=== PATIENT | female | born 1940 | race Caucasian/White ===

== ENCOUNTER 2022-05-31 17:11 | Emergency (ER) | payer MEDICARE, SELFPAY ==
[2022-05-31 17:20] VITALS: BP 153/83; PULSE 62; RESP 20; TEMP 36; BMI 21.1
--- NOTE | 2022-05-31 17:35 | CRLHL7_ITS ---
For Patients: As a result of the Century Cures Act, medical imaging exams and procedure reports are released immediately into your electronic medical record. You may view this report before your referring provider. If you have questions, please contact your health care provider. Indication: Fall on outstretched hand, right wrist pain Comparison: None available. Technique: AP, lateral, and oblique views right wrist were obtained. Findings: There is an impacted fracture of the distal radius with minimal apex dorsal angulation. There is an additional ulnar styloid avulsion injury. Degenerative change of the 1st carpometacarpal joint is appreciated. Moderate carpal soft tissue swelling. Impression: Impacted fracture of the distal radius with minimal apex dorsal angulation. Dictated by Ruben Wright MD @ 05/31/2022 6:00:28 PM (Electronically Signed)
--- NOTE | 2022-05-31 17:36 | ED.UPPEXIN ---
HPI - Extremity Injury (Upper) General Chief Complaint: Extremity Pain/Injury, Upper Stated Complaint: R wrist injury Time Seen by Provider: 05/31/22 17:32 History of Present Illness HPI narrative: This 81-year-old female comes in with an injury to her right wrist. Prior to arrival she fell onto her outstretched right hand. She has swelling and deformity at the right wrist. She did not have any other injury and did not lose consciousness. Related Data Previous Rx's Medication Instructions Recorded tramadol 50 mg tablet 50 mg PO Q6H PRN pain #20 tabs 05/31/22 Allergies Allergy/AdvReac Type Severity Reaction Status Date / Time No Known Drug Allergies Allergy Verified 05/31/22 17:20 Review of Systems Status of ROS: Reports: 10 or more systems reviewed and unremarkable except as noted in History and below Narrative: Constitutional: No fevers, no weight gain or loss. Eyes: No discharge. No vision changes. HENT: No congestion, no sore throat, no ear pain. Cardiovascular: No chest pain, no palpitations. Respiratory: No shortness of breath, no wheezes, no cough. Gastrointestinal: No abdominal pain, no vomiting, no diarrhea. Genitourinary: No dysuria, no hematuria. Musculoskeletal: Right wrist injury as described above. Skin: No rashes, no pruritis. Neurological: No dizziness, weakness, sensory change, speech change. Endo/Heme/Allergies: No bruising or bleeding. No polydipsia. Pysch: no suicidality, no anxiety, no insomnia. All other systems reviewed and are negative. Exam Narrative: Exam Narrative: Constitutional: Well-developed, well-nourished, no acute distress. HEENT: Normocephalic, atraumatic. Neck: Normal range of motion. Nontender. Supple. Heart: Regular. No murmurs. Normal rate. Intact distal pulses. Lungs: Clear to auscultation. No chest discomfort. No wheezes, rhonchi, or rales. Abdomen: Normal bowel sounds. Nontender. No rebound tenderness. Genitalia: Deferred. Back: No midline tenderness. Normal range of motion. Extremities: Pain and swelling at the right wrist typical of a fracture. There is no skin injury. Skin: Intact. No rash. Warm. No erythema or pallor. Neurologic: No altered sensation. No weakness. Alert and oriented. Psychiatric: No suicidality. No anxiety or depression. No insomnia. Nursing notes and vitals signs are reviewed. Const: Vital Signs, click to edit/add: Vital Signs - 24 hr 05/31/22 17:20 Temperature 96.8 F L Pulse Rate [Pulse Oximeter] 62 Respiratory Rate 20 Blood Pressure [Le ft Upper Arm] 153/83 H Oxygen Delivery Me thod Room Air Course Vital Signs Vital signs: Initial Vital Signs Temperature 96.8 F L 05/31/22 17:20 Temperature Source Temporal Artery Scan 05/31/22 17:20 Pulse Rate 62 05/31/22 17:20 Pulse Rhythm 05/31/22 17:20 Respiratory Rate 20 05/31/22 17:20 Blood Pressure 153/83 H 05/31/22 17:20 Blood Pressure Mean 106 05/31/22 17:20 Blood Pressure Position Sitting 05/31/22 17:20 Oxygen Delivery Method 05/31/22 17:20 Vital Signs Temperature 96.8 F L 05/31/22 17:20 Pulse Rate 62 05/31/22 17:20 Respiratory Rate 20 05/31/22 17:20 Blood Pressure 153/83 H 05/31/22 17:20 Oxygen Delivery Method 05/31/22 17:20 Temperature 96.8 F L 05/31/22 17:20 Pulse Rate 62 05/31/22 17:20 Respiratory Rate 20 05/31/22 17:20 Blood Pressure 153/83 H 05/31/22 17:20 Oxygen Delivery Method 05/31/22 17:20 MDM - Extremity Injury (Upper) MDM Narrative Medical decision making narrative: This patient comes in with an injury to her right wrist. X-ray images show evidence of a impacted fracture of the distal radius with minimal angulation. The patient was placed in a volar splint using Ortho Glass material. A follow-up appointment with orthopedic clinic is arranged. She did receive a prescription for some tablets of tramadol. Imaging Data XR R Wrist: Radiologist's impression: Impacted fracture of the distal radius with minimal apex dorsal angulation. Discharge Plan Discharge Clinical Impression: Fracture of wrist Patient Disposition: Home, Self-Care Condition: Stable Additional Instructions: Take medication as needed and indicated. Wear splint. Follow-up with orthopedic clinic as scheduled. Prescriptions: New tramadol 50 mg tablet 50 mg PO Q6H PRN (Reason: pain) Qty: 20 0RF Follow Up/Referrals: Madelyn Cruz MD [Primary Care Provider] - Stand Alone Forms: [employer] Info Instructions
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
== END 2022-05-31 19:16 | disposition home or self-care (01) ==
PROVIDERS: Emergency Provider Emergency Medicine Emergency Medical Services; PCP Family Medicine
DX: S52.591A Other fractures of lower end of right radius, initial encounter for closed fracture (principal); W18.30XA Fall on same level, unspecified, initial encounter; Y93.9 Activity, unspecified; Y92.9 Unspecified place or not applicable; Y99.9 Unspecified external cause status
CPT/HCPCS: 29125; 73110; 99283; 99284

== ENCOUNTER 2022-06-10 06:36 | Day surgery (SDC) | payer MEDICARE, SELFPAY ==
[2022-06-10] VITALS (8 sets, daily range): BP systolic 118–132; BP diastolic 61–88; PULSE 59–72; RESP 16–18; TEMP 36.6–36.9; O2SAT 95–100; BMI 20.4
[2022-06-10] MEDS: fentaNYL 100 MCG/2 ML inj IVP (07:01)
[2022-06-10] MEDS: MIDAZOLAM HCL 1 MG/ML inj IVP (07:01)
[2022-06-10] MEDS: LACTATED RINGERS 1000 ML 1,000 ML 100 ML IV (07:30)
[2022-06-10] MEDS: SODIUM CHLORIDE 0.9 % (FLUSH) 10 ML SYRINGE IVF (07:42)
--- NOTE | 2022-06-10 07:56 | SUR.PREOP ---
TIME?OUT:?0758 PT/RN/MDA?VERIFICATION?OF?SURGICAL?SITE,?PROCEDURE,?AND?CONSENT OBTAINED?PRIOR?TO?INVASIVE?PROCEDURE.
--- NOTE | 2022-06-10 08:00 | CRLHL7_ITS ---
For Patients: As a result of the Cures Act, medical imaging exams and procedure reports are released immediately into your electronic medical record. You may view this report before your referring provider. If you have questions, please contact your health care provider. Indication: Right Distal Radius ORIF Technique: Three fluoroscopic images of the right wrist. Fluoroscopic time 17.2 seconds. IMPRESSION: Fluoroscopic guidance for open reduction internal fixation of distal radial metaphyseal fracture. Dictated by Daniele Leonardo MD @ 06/10/2022 11:00:36 AM (Electronically Signed)
--- NOTE | 2022-06-10 09:08 | P.ORPRC_ITS ---
Procedure Note Date of procedure: 06/10/22 Procedure: PREOPERATIVE DIAGNOSES: 1. Right distal radius fracture intra-articular (ulnar facet), 3 part distal radius fracture with dorsal angulation and displacement POSTOPERATIVE DIAGNOSES: 1. Right distal radius fracture intra-articular (ulnar facet), 3 part distal radius fracture with dorsal angulation and displacement NAME OF OPERATION: 1. Right distal radius open reduction with internal fixation of intraarticular fracture (3+ parts) 2. 36496 - intraoperative fluoroscopy up to 1 hour. SURGEON: Javid David MD SALES ORDER COORDINATOR: Jonathan Quezada PA-C - Of note, an technical assistant was critical for this case to aide in patient positioning, limb manipulation, tissue retraction, closure, and splinting. ANESTHESIA: Supraclavicular block plus MAC IMPLANTS: Synthes dual column volar locking distal radius plate with 1.8 mm distal locking pegs and 2.4 mm proximal locking screws. TOURNIQUET: 42 minutes at 250 torr. INDICATIONS: The patient is a pleasant, 81-year-old female who sustained a right wrist injury after a fall. They had difficulty with use of the extremity and deformity. Workup included xrays which revealed an unstable fracture. Given these findings, surgery was recommended to stablize the fracture. FINDINGS: Closed, mildly comminuted intra-articular distal radius fracture with dorsal angulation and displacement and shortening. PROCEDURE: Following a thorough discussion of risks, benefits, and alternatives, consent was obtained and the operative extremity was marked. The patient was brought to the operating room and placed supine on the operating table. Induction of anesthesia was achieved. Appropriate time out was performed identifying proper patient, site and procedure. 1 gram of iv Ancef was administered within 1 hour of incision preoperatively. The right upper extremity was prepped and draped in the appropriate sterile fashion using ChloraPrep prep. The limb was exsanguinated and the tourniquet inflated. A longitudinal incision was made overlying the FCR tendon. Sharp incision through skin and subcutaneous tissue allowed identification of the FCR tendon. The superficial sheath was sharply divided, the tendon retracted ulnarly, and the deep fascial sheath also released. The FPL was retracted ulnarly and the pronator quadratus was sharply released from the radial border of the radius and subperiosteally elevated. The fracture was encountered and cleared of interposed periosteum / fracture hematoma. A reduction was performed and the appropriate plate selected. Temporary stabilization allowed C-arm fluoroscopy to confirm proper fracture reduction and plate positioning. The oblong hole was filled with a nonlocking screw followed by multiple distal locking pegs being careful to keep these in subchondral bone and extraarticular. Finally, the remaining proximal shaft screws were drilled and placed. Fluoroscopic imaging confirmed the improved position and showed the fracture to be stable. At this stage, the wound was thoroughly irrigated with normal saline. Closure performed with 0 Vicryl for the pronator quadratus, followed by deflation of the tourniquet. All major bleeding points were cauterized. Closure was then completed with 3-0 Vicryl for the subcutaneous, and 4-0 statafix for subcuticular closure. Dressings were applied along with a volar/dorsal splint. The patient was awoken from anesthesia and transferred to PACU in stable condition. PLAN: 1. Elevate operative extremity. 2. Ice, acetominphen or ibuprofen PRN. 3. Percocet for pain as needed. 4. Follow up with me in 10-16 days for wound check and splint removal.
--- NOTE | 2022-06-10 09:40 | P.NB_ITS ---
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 Images saved: Yes Medications given in 5ml increments after negative aspiration: Ropivicaine %: 0.5 mL: 30 Needle gauge: 22 Patient tolerated procedure well: Yes Additional comments: Needle noted adjacent to nerve Block Charges Block Charge (with Pro Fee): Brachial Plexus Use of Ultrasound Machine for Block: Yes- US Guidance/pain block
--- NOTE | 2022-06-10 09:44 | W.ANESCHARGE ---
Anesthesia Charges Start Date/Time Anesthesia Start Date: 06/10/22 Anesthesia Start Time: 08:08 Stop Date/Time Anesthesia Stop Date: 06/10/22 Anesthesia Stop Time: 09:43 Summary Emergency: No Extremes of Age: Over 72-CPT [id number]
--- NOTE | 2022-06-12 11:11 | SUR.PHASEII ---
Verified pt d/c time and charting per MPint. Entered d/c time and chart verification documentation.
== END 2022-06-10 11:03 | disposition home or self-care (01) ==
PROVIDERS: PCP Family Medicine; Visit Provider Orthopaedic Surgery Sports Medicine
PROC: (CPT 25575; principal; 2022-06-10 08:00)
DX: S52.571A Other intraarticular fracture of lower end of right radius, initial encounter for closed fracture (principal)
CPT/HCPCS: 25609; 01830; 64415; 73110; 76000; 76942; 99100; A4580; C1713; J2250; J2405; J2704; J3010; J7120

== ENCOUNTER 2022-08-29 16:00 | Outpatient (RCR) | payer MEDICARE, SELFPAY ==
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
== END 2022-08-30 08:17 | disposition home or self-care (01) ==
PROVIDERS: PCP Family Medicine; Visit Provider Orthopaedic Surgery Sports Medicine
DX: Z98.890 Other specified postprocedural states (principal); Z51.89 Encounter for other specified aftercare
CPT/HCPCS: 97110; 97140; 97165; X5282

== ENCOUNTER 2023-10-02 14:30 | Outpatient (RCR) | payer MEDICARE, SELFPAY | END 2024-01-30 23:59 | disposition home or self-care (01) | PROVIDERS: PCP Family Medicine; Visit Provider Family Medicine | DX: R41.3 Other amnesia (principal); Z51.89 Encounter for other specified aftercare | CPT/HCPCS: 97165; 97535 ==

== ENCOUNTER 2024-12-18 11:42 | Emergency (ER) | payer MEDICARE, SELFPAY ==
--- OUTSIDE RECORDS SUMMARY | 2024-12-18 11:44 | XMS_ITS | Clinical Summary ---
Author Organization [facility] Address [address] [place] [id number] Care Team Providers Care Tuber Operator Name Role Phone Madelyn Cruz MD Primary Care Provide r Dilip Francois MD Unavailable Jakob Rojas MD Unavailable [phone] Guillermina Hitchcock DC Unavailable [phone] Allergies No known active allergies Medications MULTIVITAMIN TAB take one daily 0 9 Active cholecalciferol (VITAMIN D-3) 2,000 unit capsule Take 1 capsule by mouth once daily. 0 2 Active betamethasone dipropionate 0.05% (DIPROSONE 0.05% CREAM) 0.05 % creamIndications: Contact dermatitis and other eczema, due to unspecified cause Use twice daily prn hand dermatitis 1 Tube 1 3 Active Calcium Citrate 250 mg calcium tablet Take 1 tablet by mouth 2 times daily. 0 5 Active apixaban (Eliquis) 5 mg tabletIndications :Paroxysmal atrial fibrillation (HC) Take 1 Tablet (5 mg) by mouth two times daily. 180 Tablet 3 5 Active metoprolol tartrate (LOPRESSOR) 25 mg tabletIndications :Paroxysmal atrial fibrillation (HC) Take 1 Tablet (25 mg) by mouth two times daily. 180 Tablet 3 5 Active sertraline (ZOLOFT) 50 mg tabletIndications :Anxiety Take 1 Tablet (50 mg) by mouth once daily in the morning. 90 Tablet 3 5 Active donepeziL (ARICEPT) 10 mg tabletIndications :Mild cognitive impairment Take 1 Tablet (10 mg) by mouth at bedtime. 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 07/28/2014 Family history of colonic polyps 07/31/2011 Overview (09/20/2021): Colonoscopy 07/2011 normal repeat in 5 years Colonoscopy 10/2016 hyperplastic polyp repeat in 5 year. Colonoscopy 09/2021 normal, no follow up needed Lumbar facet arthropathy 05/09/2011 Synovial cyst of lumbar facet joint 03/21/2011 Degenerative arthritis of lumbar spine 9 Contact dermatitis and other eczema, due to unspecified cause 01/16/2007 Overview (01/16/2007): hands Osteoarthrosis, unspecified whether generalized or localized, unspecified site 01/16/2007 Malignant melanoma of skin of lower limb, includ ing hip 05/21/2006 Resolved Problems Problem Noted Date Diagnosed Date Resolved Date Osteopenia 05/18/2010 08/21/2018 Synovial cyst, unspecified 04/21/2009 0 03/21/2011 Overview (04/21/2009): Right-sided facet joint synovial cyst Disorder of bone and cartilage, unspecified 01/16/2007 05/18/2010 Overview (04/28/2009): Osteopenia DEXA 2006 - reordered 2008 Disorder of bone and cartilage, unspecified 01/16/2007 04/17/2010 Overview (01/16/2007): osteopenia Encounters Date Type Department Care Team Description 11/26/2024 Orders Only [facility] Scanner 1 scan: (1-Ord) [facility], NEVUS EXCISION RT INFERIOR LATERAL NECK, 11/26/2024 11/05/2024 Orders Only [facility] Scanner 1 scan: (1-Ord) [facility], [facility], 11/05/2024 from Last 3 Months Immunizations Immunization Administration Dates Next Due AMB Influenza, IIV3 (Age >=3 years)(Flu Clinic Only) 05/19/2013,05/26/2012 AMB Influenza, IIV4 PF (=>6 mos Flulaval,Fluzone Fluarix)(Flu Clinic Only) 04/20/2020 COVID-19 VACCINE SPIKEVAX (M ODERNA 50MCG/0.5ML) 12YO+ PFS 08/26/2024,08/21/2023 COVID-19 vaccine (Powerspan-Bio NTech 30mcg/0.3mL) PF, MDV 06/08/2021,08/29/2020,08/08/2020 INFLUENZA, IIV3 PF (AGE >= 6 MO) 04/13/2010 Influenza A (H1N1), Inactiva javi (Age 6-35 Mos) 06/05/2009 Influenza, High-dose Inactivated 04/20/2016,04/20 Influenza, High-dose Quadriv alent Inactivated 07/17/2023 Influenza, IIV3 (Age >=3 years) 04/25/2011,04/13,04/28/2009 Influenza, Inactivated AIIV4 (Age 65+ Years) Preserv Free 04/29/2022,07/18/2021 Influenza, Inactivated IIV3 (Age 65+ Years) Preserv Free 07/28/2024,07/24/2017 Pneumococcal Poly,23-Valent (Pneumovax) 04/28/20 09 Pneumococcal conj 13-Valent (Prevnar 13) 014 Tdap 10/29/2016,01/23/2007 Zoster (Shingrix-RZV, recombinant) 05/28/2019, Family History Medical History Relation Name Comments Dementia Brother Age 80 Cancer Daughter melanoma Heart Disease Father age 80 SD Cancer-breast Maternal Aunt Diabetes Maternal Grandfather Cancer-colon Maternal Grandmother Cancer-colon Maternal Uncle Hypertension Mother Diabetes Paternal Grandfather Cancer Son melanoma Relation Name Status Comments Brother Daughter Father Maternal Aunt Maternal Grandfather Maternal Grandmother Maternal Uncle Mother Paternal Grandfather Son Social History Tobacco Use Types Packs/Day Years Used Date Smoking Tobacco: Never Smokeless Tobacco: Never Tobacco Cessation:Counseling Given: Yes Alcohol Use Standard Drinks/Week Comments Not Currently 0 (1 standard drink = 0.6 oz pur e alcohol) very rare PHQ-2 Answer Date Recorded PHQ-2 TOTAL SCORE 0 08/26/2024 Social Connections Answer Date Recorded Do you often feel lonely or isolated from those around you? 0 08/26/2024 Financial Resource Strain Answer Date R ecorded Difficulty of Paying Living Expenses 3 08/26/2024 Difficulty of Paying Living Expenses Not on file 08/26/2024 Food Insecurity Answer Date Recorded Do you worry your food will run out before you are able to buy more? 1 08/26/2024 Transportation Needs Answer Date Record ed Does lack of transportation keep you from medica l appointments? 1 08/26/2024 Does lack of transportation keep you from work, meetings or getting things that you need? 1 08/26/2024 Housing Stability Answer Date Recorded What is your housing situation today? 1 08/26/2024 Utilities Answer Date Recorded Do you have trouble paying f or utilities (for example, heat, electricity, water, phone)? 1 08/26/2024 Comments No Sex and Gender Information Value Date Recorded Sex Assigned at Not on file Legal Sex Female 6:29 AM GLOBAL ACCOUNT EXECUTIVE Gender Identity Not on file Sexual Orientation Not on file Obstetrics History Para Term AB IAB SAB Ectopic Multiple Livin g Live Births 3 3 3 0 0 0 0 0 0 3 3 Date Outcome GA Total Labor Labor/2nd/3rd Weight Sex Type Anes PTL Millie A1 A5 Name Clin Term Living Term Living Term Living Last Filed Vital Signs Vital Sign Reading Time Taken Comments Blood Pressure 138/85 08/26/2024 12:56 PM GLOBAL ACCOUNT EXECUTIVE Pulse 65 08/26/2024 12:56 PM GLOBAL ACCOUNT EXECUTIVE Temperature 37.9 C (100.2 F) 03/08/2020 2:54 PM CDT Respiratory Rate 18 03/23/2019 9:37 AM CDT Oxygen Saturation 98% 08/26/2024 12: 56 PM GLOBAL ACCOUNT EXECUTIVE Inhaled Oxygen Concentration - - Weight 51.1 kg (112 lb 11.2 oz) 025 12:56 PM GLOBAL ACCOUNT EXECUTIVE Height 157.5 cm (5' 2) 08/26/2024 12:5 6 PM GLOBAL ACCOUNT EXECUTIVE Body Mass Index 20.61 08/26/2024 12:56 PM GLOBAL ACCOUNT EXECUTIVE Plan of Treatment Health Maintenance Due Date Last Done Comments RSV vaccine for adults or (1 - 1-dose 75+ series) 2017 COVID-19 vaccine series (2023- season) 2025 08/26/2024, 08/21/2023, 06/08/2021, Additional history exists BMI (ht and wt on same day) for age 18+ 08/26/2025 08/26/2024, 08/21/2023, 08/30/2022, Additional history exists Depression screening for age 12+ 08/26/2025 08/26/2024, 10/28/2023, 08/21/2023, Additional history exists Medicare Wellness for age 65+ 08/27/2025 08/26/2024, 08/21/2023, 08/30/2022, Additional history exists Tetanus booster 10/29/2026 10/29/2016, 01/23/2007 Pneumococcal series for age 50+ Completed 06/23/2014, 04/28/2009 Tdap Completed 10/29/2016, 01/23/2007 Zoster (shingles) series for age 50+ Completed 05/28/2019, 02/12/2019 DEXA/DXA scan for age 65+ Completed 2020, 08/06/2018, 07/04/2016, Additional history exists Influenza Vaccine Completed 07/28/2024, , 07/18/2021, Additional history exists Hepatitis B series for 19+ Aged Out N o longer eligible based on patient's age to complete this topic Goals Goal Patient Goal Type Associated Problems Recent Progress Patient-Stated? Author BLOOD PRESSURE - Maintains BP less than 140/90 Blood Pressure No Madeline Serrano LPN Procedures Procedure Name Priority Date/Time Associated Diagnosis Comments SCAN-OPERATIVE/PROC EDURE REPORT 11/26/2024 12:00 AM CDT SCAN-OPERATIVE/PROC EDURE REPORT 11/05/2024 12:00 AM CDT XR DXA BONE DENSITY 2 SITES AXIAL Routine 08/17/2020 10:52 AM GLOBAL ACCOUNT EXECUTIVE Osteopenia, unspecified location Menopause from Last 3 Months or Most Recently Relevant to Health Maintenance Results * SCAN-OPERATIVE/PROCEDURE REPORT (11/26/2024 12:00 AM CDT) us Scanner OTHER Final Result * SCAN-OPERATIVE/PROCEDURE REPORT (11/05/2024 12:00 AM CDT) us Scanner OTHER Final Result * (ABNORMAL) XR DXA BONE DENSITY 2 SITES AXIAL (08/17/2020 10:52 AM GLOBAL ACCOUNT EXECUTIVE) Anatomical Region Laterality Modality Spine, HIPS, HIPL, HIPR Other Narrative 08/21/2020 4:04 PM GLOBAL ACCOUNT EXECUTIVE PATIENT NAME: Myriam Glover DATE OF : 1940 EXAM DATE: 08/17/20 INDICATION: FOLLOW UP OF EXISTING OSTEOPOROSIS TECHNIQUE: Dual-energy x-ray absorptiometry performed with routine technique. COMPARISON: 07/2018 RISK FACTORS: ADVANCED AGE, RACE, LOW CALCIUM INTAKE, SEDENTARY LIFESTYLE and WEIGHT < 125 LBS FINDINGS- see scanned imaging for BMD values: Lumbar Spine: [L1, L3, L4]: T-score: [ -2.4]. Z-score: [-0.3 ] RIGHT Hip Total: T-score: [-2.1 ]. Z-score: [0.0 ] RIGHT Hip Femoral neck: T-score: [-2.3 ]. Z-score: [-0.1 ] LEFT Hip Total: T-score: [-2.4 ]. Z-score: [ -0.3] LEFT Hip Femoral neck: T-score: [-2.7 ]. Z-score: [-0.5] COMPARISON: There has been a 8.6% increase in lumbar spine BMD. There has been a 1.4% decrease in hip BMD. FRAX Results: Not applicable due to Osteoporosis. IMPRESSION/RECOMMENDATIONS: OSTEOPOROSIS. - Note that L2 was excluded this scan due to nonconcordant with other vertebrae. Used L1-4 in comparison. This likely accounts for the statistically significant improvement in her spine BMD rather than true improvement. - Recommend advanced pharmacologic treatment if clinically appropriate. - T score meets the World Health Organization (WHO) criteria for osteoporosis at one or more measured sites. The risk of osteoporotic fracture increased approximately two-fold for each SD decrease in T-score. REPEAT BONE DENSITY SCAN IN 2-3 YEARS. Serial BMD testing can be used in this patient to determine whether treatment should begin (a significant loss may indicate the need for treatment) or to monitor response to therapy. 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
[2024-12-18 11:47] VITALS: BP 190/79; PULSE 91; RESP 18; TEMP 36.1; O2SAT 98; BMI 18.1
--- NOTE | 2024-12-18 12:02 | CRLHL7_ITS ---
For Patients: As a result of the Cures Act, medical imaging exams and procedure reports are released immediately into your electronic medical record. You may view this report before your referring provider. If you have questions, please contact your health care provider. INDICATION: Posttraumatic back pain. COMPARISON: Comparison is made to a subsequent CT of the thoracic spine which is dictated separately. TECHNIQUE: Two views of the thoracic spine. FINDINGS: A subtle superior endplate compression deformity of T6 is noted which is demonstrated to better advantage on the subsequent thoracic spine CT. Please refer to that report. There is also made of a compression deformity of T11. No significant paraspinal soft tissue findings on this imaging modality. Note is otherwise made of diffuse osteopenia and lumbar dextroscoliosis. IMPRESSION: Age-indeterminate (on this imaging modality) compression deformities of T6 and T11. Please also refer to the subsequent thoracic spine CT report dictated separately. Dictated by Krish Wiley MD @ 12/18/2024 12:57:17 PM (Electronically Signed)
--- NOTE | 2024-12-18 12:03 | ED.GENADULT ---
HPI - General Adult General Chief complaint: Back Injury/Pain Stated complaint: fall - back pain Time Seen by Provider: 12/18/24 11:46 History of Present Illness HPI narrative: Patient is delightful 84-year-old female who just tragically lost her . She was caring something and fell backwards kind of landing on her back. She actually fell down about 3 steps, does not report any discomfort other than her thumb along her bra line in the thoracic spine area. No difficulty breathing, no neck pain headache loss of consciousness pelvic pain hip pain or lower extremity symptoms or upper extremity symptoms. She is got a history of AFib and is on long-term anticoagulation. Did not hit her head, did not have any headache, did not have any loss consciousness. Related Data Home Medications ?Medication ?Instructions ?Recorded ?Confirmed alendronate 70 mg tablet 70 mg PO .once week 06/07/22 07/30/22 apixaban 5 mg tablet (Eliquis) 5 mg PO BID 06/07/22 07/30/22 betamethasone dipropionate 0.05 % 1 applic topical BID PRN 06/07/22 07/30/22 topical cream calcium citrate 250 mg PO BID 06/07/22 07/30/22 cholecalciferol (vitamin D3) 50 2,000 unit PO DAILY 06/07/22 07/30/22 mcg (2,000 unit) capsule metoprolol tartrate 50 mg tablet 25 mg PO BID 06/07/22 07/30/22 Allergies Allergy/AdvReac Type Severity Reaction Status Date / Time No Known Drug Allergies Allergy Verified 07/30/22 12:58 Review of Systems Status of ROS: Reports: 6 or more systems reviewed and unremarkable except as noted in History and below [facility] Medical History Osteoporosis ?M81.0 - Age-related osteoporosis without current pathological fracture (ICD-10) Paroxysmal atrial fibrillation ?I48.0 - Paroxysmal atrial fibrillation (ICD-10) Ductal carcinoma in situ (DCIS) of left breast ?D05.12 - Intraductal carcinoma in situ of left breast (ICD-10) Spondylolisthesis at L4-L5 level ?M43.16 - Spondylolisthesis, lumbar region (ICD-10) Lumbar facet arthropathy ?M47.816 - Spondylosis without myelopathy or radiculopathy, lumbar region (ICD-10) Synovial cyst of lumbar facet joint ?M71.38 - Other bursal cyst, other site (ICD-10) Degenerative joint disease (DJD) of lumbar spine ?M47.816 - Spondylosis without myelopathy or radiculopathy, lumbar region (ICD-10) Osteoarthritis ?M19.90 - Unspecified osteoarthritis, unspecified site (ICD-10) Contact dermatitis and eczema ?L25.9 - Unspecified contact dermatitis, unspecified cause (ICD-10) Malignant melanoma of skin ?C43.9 - Malignant melanoma of skin, unspecified (ICD-10) Atrial fibrillation ?I48.91 - Unspecified atrial fibrillation (ICD-10) Surgical History S/P ORIF (open reduction internal fixation) fracture (06/10/22) ?Z98.890 - Other specified postprocedural states (ICD-10) ?Z87.81 - Personal history of (healed) traumatic fracture (ICD-10) History of tubal ligation ?Z98.51 - Tubal ligation status (ICD-10) S/P ORIF (open reduction internal fixation) fracture (04/18/10) ?Z98.890 - Other specified postprocedural states (ICD-10) ?Z87.81 - Personal history of (healed) traumatic fracture (ICD-10) Social History Smoking Status: Never smoker Do you use any of these nicotine containing products: None Second hand tobacco smoke exposure: No How often do you have a drink containing alcohol: never How often do you have six or more drinks on one occasion: Never AUDIT-C Alcohol total score: 0 Non-prescribed substance use: denies use Caffeine: Yes (coffee) Are you using contraception or practicing any form of control: No service: No Exam Narrative: Exam Narrative: Objective: Vital signs show elevated blood pressure 190/79 Alert orient x3 no distress HEENT is unremarkable no evidence of trauma or injury pupils react to light extra movements intact Neck is supple nontender no midline tenderness back exam shows no marked midline tenderness but she describes pain primarily in the thoracic spine at about her bra line area. There is really no paraspinal muscle tenderness or midline tenderness in that area. Lower thoracic and lumbar area showed no tenderness. Pelvis is stable Flexion-extension hips is normal Upper lower extremities examination shows no injury or tenderness. Neurologic is nonfocal upper lower extremities. Const: Vital Signs, click to edit/add: Vital Signs - 24 hr 12/18/24 11:47 12/18/24 13:40 Temperature 97.0 F L Pulse Rate [Pulse Oximeter] 91 Respiratory Rate 18 Blood Pressure [Ri ght Upper Arm] 190/79 H Pulse Oximetry 98 97 Oxygen Delivery Me thod Room Air Course Vital Signs Vital signs: Initial Vital Signs Temperature 97.0 F L 12/18/24 11:47 Temperature Source Temporal Artery Scan 12/18/24 11:47 Pulse Rate 91 12/18/24 11:47 Respiratory Rate 18 12/18/24 11:47 Blood Pressure 190/79 H 12/18/24 11:47 Blood Pressure Mean 116 H 12/18/24 11:47 Pulse Oximetry 98 12/18/24 11:47 Oxygen Delivery Method Room Air 12/18/24 11:47 Vital Signs Temperature 97.0 F L 12/18/24 11:47 Pulse Rate 91 12/18/24 11:47 Respiratory Rate 18 12/18/24 11:47 Blood Pressure 190/79 H 12/18/24 11:47 Pulse Oximetry 98 12/18/24 11:47 Oxygen Delivery Method Room Air 12/18/24 11:47 Temperature 97.0 F L 12/18/24 11:47 Pulse Rate 91 12/18/24 11:47 Respiratory Rate 18 12/18/24 11:47 Blood Pressure 190/79 H 12/18/24 11:47 Pulse Oximetry 97 12/18/24 13:40 Oxygen Delivery Method Room Air 12/18/24 11:47 Medications Administered Medications: Discontinued Medications Generic Name Dose Route Start Last Admin Trade Name Freq PRN Reason Stop Dose Admin Hydrocodone Bitart/Acetaminophen 1 tab 12/18/24 12:02 12/18/24 12:09 Hydrocodone-Acetamin 5-325 Mg 1 Tab PO 12/18/24 12:03 1 tab ONCE ONE Administration Medical Decision Making MDM Narrative Medical decision making narrative: [age] white female fell backwards injuring her thoracic area spine. I think an x-ray at this point would be helpful. She is able to stand up on her own able to move around able to sit up in bed. Hopefully this is just a contusion and soft tissue. Will give her some [place] orally just to take the edge off the discomfort now and consent a few home with her as well. Disposition pending x-ray findings. Addendum 12:46 p.m. by my read of her thoracic x-rays the patient appears to have a thoracic compression fracture midthoracic spine. I think a CT scan would be helpful to make sure there is no retro falls retropulsed fragments and document some for certain. Patient was comfortable this plan. Addendum 1:33 p.m.: Patient has a CT scan that demonstrates an acute T6 burst fracture that also extends into the posterior neural arch and has vertically oriented fractures involving the pars interarticularis was no widening of the facet joints there is mild anterior paraspinal soft tissue thickening consistent with edema or hemorrhage. There is about 40% loss of T11 that appears more chronic, there is about 30% at the T6 level. I think this needs specialty consultation likely at [facility]. Will discuss with [facility]. I did contact Dr. Villalobos in the ED at [facility], who kindly accepts the patient in transfer. Recommended Kcentra and that will be started. The patient has not had a heart rate of replacement but simply takes the blood thinner for AFib. Patient likely will need a TLSO brace as mention in her surgical consultation. Discharge Plan Discharge Clinical Impression: Fall, Thoracic spine pain Patient Disposition: Home w/ Parent or Adult Condition: Stable Additional Instructions: Light activity, ice to the area 5-10 minutes for 5 times a day, may try Tylenol as needed, if that is ineffective he could try some [place] sparingly. Do not to take the Tylenol and [place] at the same time. Recheck with regular doctor in the next 2-3 days, return to ED sooner problems concerns worsening. E.d. may need more advanced imaging if he continues pain or discomfort. Activity Level: Light activity Discharge Diet: Regular Prescriptions: No Action alendronate 70 mg tablet 70 mg PO .once week Patient Comments: TAKE 1 TABLET BY MOUTH ONCE A WEEK IN THE MORNING. TAKE ON EMPTY STOMACH WITH FULL GLASS OF WATER DO NOT LIE DOWN FOR 1 HOUR metoprolol tartrate 50 mg tablet 25 mg PO BID Patient Comments: TAKE ONE-HALF TABLET BY MOUTH TWO TIMES DAILY Eliquis 5 mg tablet 5 mg PO BID Patient Comments: TAKE 1 TABLET BY MOUTH 2 TIMES DAILY betamethasone dipropionate 0.05 % cream 1 applic topical BID PRN cholecalciferol (vitamin D3) 50 mcg (2,000 unit) capsule 2,000 unit PO DAILY calcium citrate 250 mg calcium tablet 250 mg PO BID Follow Up/Referrals: Madelyn Cruz MD [Primary Care Provider, Family Practice] Stand Alone Forms: [facility] Info Instructions
[2024-12-18] MEDS: HYDROCODONE-ACETAMIN 5-325 MG 1 TAB PO (12:09)
--- NOTE | 2024-12-18 12:38 | CRLHL7_ITS ---
For Patients: As a result of the Century Cures Act, medical imaging exams and procedure reports are released immediately into your electronic medical record. You may view this report before your referring provider. If you have questions, please contact your health care provider. INDICATION: Posttraumatic pain. History of breast cancer and melanoma. COMPARISON: None available. TECHNIQUE: CT of the thoracic spine without intravenous contrast. Please note that all CT scans at this facility use dose modulation, iterative reconstruction, and/or weight-based dosing when appropriate to reduce radiation dose to as low as reasonably achievable. FINDINGS: Incomplete burst fracture of the T6 vertebral body which involves the superior endplate and posterior vertebral body cortex (the latter demonstrated on series 8; image 16). Approximate 30 percent loss of vertebral body height. No significant retropulsion of the posterior vertebral body into the spinal canal or spinal canal stenosis. The fracture extends to the posterior neural arch with vertically oriented fractures involving the pars interarticularis (series 5; image 60 and series 8; images 21, 13 on the right and left, respectively). No associated widening of the facet joints, pedicles or spinous processes at the involved level. There is mild associated anterior paraspinal soft tissue thickening consistent with edema/hemorrhage. Note is otherwise made of a chronic appearing a moderate chronic T11 superior endplate compression fracture with approximately 40 percent loss vertebral body height. Alignment: No significant spondylolisthesis, widening of the intervertebral disc spaces, interfacetal joints or interspinous distances. Vertebrae: Vertebral bodies, pedicles, laminae, articular, transverse and spinous processes are otherwise intact. Advanced disc degeneration is noted incidentally C6-C7. Extraspinal Anatomy: No significant findings. IMPRESSION: 1. Acute T6 burst fracture described in detail above. Subspecialty consultation is advised. 2. Chronic T11 superior endplate wedge compression fracture. Please note that all CT scans at this facility use dose modulation, iterative reconstruction, and/or weight-based dosing when appropriate to reduce radiation dose to as low as reasonably achievable. Dictated by Krish Wiley MD @ 12/18/2024 1:23:44 PM (Electronically Signed)
[2024-12-18 13:40] VITALS: O2SAT 97
[2024-12-18 13:45] VITALS: BP 142/75; PULSE 64; RESP 18; TEMP 36.2; O2SAT 97
[2024-12-18 13:48] VITALS: BP 142/75
[2024-12-18] MEDS: MORPHINE 2 MG/ML inj IVP (13:48)
[2024-12-18 13:49] VITALS: PULSE 65; O2SAT 97
[2024-12-18 14:09] LABS: Basophils Absolute Auto 0.02 K/uL (0.00-0.30); Basophils Percent Auto 0.2 % (0.0-3.0); Eosinophils Absolute Auto 0.05 K/uL (0.00-0.50); Eosinophils Percent Auto 0.5 % (0.0-7.0); Hematocrit* 34.4 % (33.0-51.0); Hemoglobin* 11.4 gm/dL (12.0-16.0); Immature Granulocytes Abs Auto 0.03 K/uL (0.00-0.30); Immature Granulocytes Pct Auto 0.3 %; Lymphocytes Percent Auto 9.3 % (20-44); Mean Corpuscular HGB Conc 33 gm/dL (32-36); Mean Corpuscular Hemoglobin 31 pg (26-34); Mean Corpuscular Volume 94 fL (80-100); Monocytes Percent Auto 4.6 % (0.0-11.0); Neutrophils Percent Auto 85.1 % (42.0-72.0); Platelet Count* 142 K/uL (140-440); RDW Coefficient of Variation % 13.3 % (11.5-15.5); Red Blood Count* 3.67 m/uL (4.00-5.20); White Blood Count* 9.32 K/uL (4.50-11.00)
[2024-12-18 14:16] LABS: Slide Review Reflex No
[2024-12-18 14:35] LABS: Chloride* 99 mmol/L (96-114); Potassium* 3.9 mmol/L (3.6-5.1); Sodium* 136 mmol/L (135-149)
[2024-12-18 14:38] LABS: Anion Gap 7 mEq/L (7-15); Blood Urea Nitrogen* 27 mg/dL (7-30); Carbon Dioxide* 30 mmol/L (20-32); Creatinine* 0.9 mg/dL (0.5-1.5); Est. Creatinine Clearance* 33.85; Estimated Glomerular Filt Rate 64 ml/min; Glucose* 112 mg/dL (60-115); INR 1.03 (0.91-1.10); Prothrombin Time 14.3 Seconds
[2024-12-18 14:39] LABS: Partial Thromboplastin Time* 28 Seconds (23-33)
== END 2024-12-18 14:22 | disposition other institution (70) ==
PROVIDERS: Emergency Provider Family Medicine; PCP Family Medicine
DX: M54.6 Pain in thoracic spine (principal); W10.9XXA Fall (on) (from) unspecified stairs and steps, initial encounter; Z79.01 Long term (current) use of anticoagulants
CPT/HCPCS: 36415; 72070; 72128; 80048; 85025; 85610; 85730; 94761; 96365; 96375; 99284; 99285; A9270; J2270; J7168

== ENCOUNTER 2024-12-18 14:17 | Outpatient (CLI) | payer MEDICARE, SELFPAY | END 2024-12-18 14:18 | disposition home or self-care (01) | LOC: AMB 01-19 12:27 | PROVIDERS: PCP Family Medicine; Visit Provider Family Medicine | DX: S22.052A Unstable burst fracture of T5-T6 vertebra, initial encounter for closed fracture (principal) | CPT/HCPCS: A0425; A0427 ==